=== PATIENT | female | born 1990 | race Two or more races ===

== ENCOUNTER 2016-11-26 14:30 | Emergency (ER) | payer OTHER, MEDICAID | END 2016-11-26 15:45 | disposition home or self-care (01) | LOC: ED 14:30 | DX: S63.501A Unspecified sprain of right wrist, initial encounter (principal); F43.10 Post-traumatic stress disorder, unspecified; F32.9 Major depressive disorder, single episode, unspecified; F17.200 Nicotine dependence, unspecified, uncomplicated; X58.XXXA Exposure to other specified factors, initial encounter; Z79.899 Other long term (current) drug therapy ==